=== PATIENT | male | born 1995 | race Caucasian/White ===

== ENCOUNTER 2017-01-25 21:05 | Emergency (ER) | payer SELFPAY ==
[~2017-01-25] VITALS: Ht 167.6 cm; Wt 84.1 kg
[2017-01-25 21:49] VITALS: BP 130/101
== END 2017-01-25 22:22 | disposition home or self-care (01) ==
LOC: EMS 21:09
DX: K02.9 Dental caries, unspecified (principal)
CPT/HCPCS: 99283